=== PATIENT | male | born 1990 | race Two or more races ===

== ENCOUNTER 2017-08-17 05:34 | Emergency (ER) | payer OTHER ==
[~2017-08-17] VITALS: Ht 167.6 cm; Wt 72.3 kg
[2017-08-17 05:35] VITALS: BP 126/81
[2017-08-17] MEDS ORDERED: LIDOCAINE 1%, 20ML SQ ONE (06:00)
[2017-08-17] MEDS ORDERED: LIDOCAINE 1%, 10ML ONE (06:13)
== END 2017-08-17 07:41 | disposition home or self-care (01) ==
LOC: ED 07:35
DX: S01.511A Laceration without foreign body of lip, initial encounter (principal); F17.200 Nicotine dependence, unspecified, uncomplicated; X58.XXXA Exposure to other specified factors, initial encounter; Y93.89 Activity, other specified; Y92.410 Unspecified street and highway as the place of occurrence of the external cause; Y99.8 Other external cause status
CPT/HCPCS: 12011

== ENCOUNTER 2017-08-28 17:18 | Emergency (ER) | payer OTHER ==
[~2017-08-28] VITALS: Ht 170.2 cm; Wt 75.0 kg
[2017-08-28 17:23] VITALS: BP 113/72
== END 2017-08-28 18:34 | disposition home or self-care (01) ==
LOC: ED 18:29
DX: S01.511D Laceration without foreign body of lip, subsequent encounter (principal); X58.XXXD Exposure to other specified factors, subsequent encounter
CPT/HCPCS: 99281